=== PATIENT | female | born 1940 | race Two or more races ===

== ENCOUNTER 2018-05-13 20:41 | Inpatient (IN) | payer OTHER, MEDICAID ==
[~2018-05-13] VITALS: Ht 157.5 cm; Wt 34.9 kg
--- NOTE | 2018-05-13 21:00 | NUR ---
PT NOEL FROM [facility] FOR BEING PHYSICALLY AGGRESSIVE TOWARDS OTHERS, AND THIS IS OUT OF CHARACTER FOR THE PT. PT AAXO1. GUAMANIAN SPEAKING. PT LAUGHING WHEN SPOKEN TO. NO AGGRESSION NOTED UPON ARRIVAL. PT RESTING IN BED.
--- NOTE | 2018-05-13 21:07 | NUR ---
TELEVISION HOST AT BEDSIDE.
[2018-05-13 21:15] LABS: BASOPHILS % (AUTO) 0.7 % (0.0-2.0); EOSINOPHILS % (AUTO) 2.9 % (0.0-6.0); HEMATOCRIT 44 % (33-45); HEMOGLOBIN 15.2 g/dL (11.5-14.8); LYMPHOCYTES # (AUTO) 2.8 /CMM (0.8-4.8); MEAN CORPUSCULAR HGB CONC 34 g/dl (31.0-36.0); MEAN CORPUSCULAR VOLUME 95 fL (82-100); MONOCYTES # (AUTO) 0.5 /CMM (0.1-1.30); MONOCYTES % (AUTO) 7.5 % (2.0-12.0); NEUTROPHILS # (AUTO) 3.6 /CMM (1.8-8.9); NEUTROPHILS % (AUTO) 49.9 % (43.0-81.0); PLATELET COUNT (AUTO) 219 /CMM (150-450); RED BLOOD CELL COUNT(AUTO) 4.68 MIL/uL (4.0-5.2); WHITE BLOOD COUNT (AUTO) 7.2 K/uL (4.3-11.0)
[2018-05-13 21:25] LABS: CALCIUM, SERUM 9.2 mg/dL (8.5-10.1); CARBON DIOXIDE 29 mmol/L (21-32); CHLORIDE 103 mmol/L (98-107); CREATININE 0.8 mg/dL (0.6-1.3); GLUCOSE 107 mg/dL (74-106); POTASSIUM 3.8 mmol/L (3.5-5.1); SODIUM SERUM 136 mmol/L (136-145); UREA NITROGEN, BLOOD 17 mg/dL (7-18)
[2018-05-13 21:31] LABS: ALANINE AMINOTRANSFERASE 20 U/L (12-78); ALBUMIN 3.6 g/dL (3.4-5.0); ALCOHOL, BLOOD < 3 mg/dL (0-0); ALKALINE PHOSPHATASE 119 U/L (46-116); ASPARTATE AMINOTRANSFERASE 15 U/L (15-37); BILIRUBIN,DIRECT 0.1 mg/dL (0.0-0.2); BILIRUBIN,TOTAL 0.4 mg/dL (0.2-1.0); TOTAL PROTEIN, SERUM 7.1 g/dL (6.4-8.2)
--- NOTE | 2018-05-13 21:32 | NUR ---
PT TAKEN TO CT.
--- NOTE | 2018-05-13 21:50 | NUR ---
UNABLE TO OBTAIN URINE. ER AWARE.
[2018-05-13 22:01] LABS: THYROID STIMULATING HORMONE 3.375 uIU/mL (0.358-3.74)
--- NOTE | 2018-05-13 23:00 | NUR ---
URINE OBTAINED AND SENT TO LAB. Patient is resting comfortably in bed with eyes closed. Easily aroused. VSS. NAD NOTED. CALL LIGHT WITHIN REACH.
[2018-05-13 23:38] LABS: APPEARANCE,URINE SL CLOUDY (CLEAR); BILIRUBIN,URINE NEGATIVE (NEGATIVE); BLOOD, URINE NEGATIVE Ery/uL (NEGATIVE); COLOR,URINE YELLOW (YELLOW); KETONES,URINE NEGATIVE (NEGATIVE); LEUKOCYTE ESTERASE ,URINE 2+ (NEGATIVE); NITRITE, URINE POSITIVE (NEGATIVE); PROTEIN,URINE NEGATIVE (NEGATIVE); UGLUCOSE NEGATIVE (NEGATIVE); UROBILINOGEN,URINE 0.2 EU/dL (0.2)
--- NOTE | 2018-05-13 23:44 | NUR ---
Patient is resting comfortably in bed with eyes closed. Easily aroused. VSS. NAD NOTED. CALL LIGHT WITHIN REACH.
[2018-05-14 00:16] LABS: BACTERIA,URINE Many /HPF (None Seen); RBC,URINE 0-2 /HPF (0-2); SQUAMOUS EPITHELIAL CELL,UR Few /HPF (None Seen)
[2018-05-14] MEDS ORDERED: CRAN450C PO (00:44)
[2018-05-14] MEDS ORDERED: CHOL10002 PO (00:44)
[2018-05-14] MEDS ORDERED: DOCU-141 PO (00:44)
[2018-05-14] MEDS ORDERED: TRAZ-182 PO (00:44)
--- NOTE | 2018-05-14 00:56 | NUR ---
Report given to Lyndsay WILSON for SANDRA.
[2018-05-14 02:00] VITALS: BP 113/63
--- NOTE | 2018-05-14 02:00 | NUR ---
GPS RN NOTES: ADMITTED A 77YO FEMALE FROM [facility]. PATIENT BROUGHT INTO [facility] AND PLACED ON 5150 HOLD FOR GRAVE DISABILITY. PER HOLD, PATIENT IS STRIKING OTHER PATIENTS, INCREASED AGITATION, UNABLE TO BE REDIRECTED, PATIENT IS DISORIENTED IN ALL SPHERES, CONFUSED, DISORGANIZED, AGITATED AND AGGRESSIVE. PATIENT WILL BE UNDER THE CARE OF DR. TAYLOR AND ANNA, ARIC. PATIENT USHERED INTO THE ROOM, UPON FACE TO FACE EVALUATION, PATIENT PRESENTS ALERT AND ORIENTED X1, WITH A BLUNTED AFFECT, REFUSING TO ANSWER NURSE'S ASSESSMENT QUESTIONS.SHE SOMETIMES ANSWER THE QUESTIONS WITH JUST A LAUGH. REALITY ORIENTATION DONE. BELONGINGS AND CONTRABAND CHECKED. SKIN AND BODY ASSESSMENT DONE WITH KACEY SHARMA- REVEAL REDDISH SCABS ON BOTH FUENTES AND ON THE RIGHT THIGH, OTHERWISE SKIN IS INTACT.Q15 MIN CHECKS AND CARE PLAN INITIATED. ENVIRONMENTAL SAFETY CHECKED. BED ALARMS PUT ON PATIENT HAS HAD HISTORIES OF FALL FROM PREVIOUS FACILITY. PATIENT CHANGED INTO A CLEAN PATIENT'S GOWN. WILL MONITOR PATIENT FOR MOOD, SAFETY AND BEHAVIOR. WILL ENDORSE TO DAY SHIFT NURSE.
[2018-05-14] MEDS ORDERED: MAGNESIUM HYDROXIDE 30 ML UDC PO PRN (02:30)
[2018-05-14] MEDS ORDERED: LORAZEPAM 0.5 MG TABLET PO PRN (02:30)
[2018-05-14] MEDS ORDERED: ACETAMINOPHEN 325 MG TABLET PO PRN (02:30)
[2018-05-14] MEDS ORDERED: MAG HYDROX/AL HYDROX/SIMETH 30 ML UDC PO PRN (02:30)
[2018-05-14] MEDS ORDERED: ACET-868 PO (07:31)
[2018-05-14] MEDS ORDERED: MULT-659 PO (07:31)
[2018-05-14 08:00] VITALS: BP 125/84
--- NOTE | 2018-05-14 10:51 | NUR ---
GPS/RN PT NOTED TO AGGRESSIVE , SELECTIVELY MUTE REFUSED TO TAKE MEDICATION. OFFERED X3. COMMUNICATED VIA LATVIAN SPEAKING RECTIFICATION PRINTER. WILL OFFER AT LUNCH TIME
[2018-05-14] MEDS: LEVOFLOXACIN (500MG) 500 MG TABLET PO SCH (12:47)
[2018-05-14] MEDS: DIVALPROEX SODIUM 125 MG CAP.SPRINK PO SCH ×2 (12:47→21:29)
--- NOTE | 2018-05-14 13:00 | NUR ---
GPS/RN PT WAS MEDICATED ORDERED. LEVAQUIN SCHEDULED FOR 0900 GIVEN WELL. THE MORNING DOSE WAS WASTED IN OMNICELL PT SPIT IT OUT IN AM.
[2018-05-14 16:00] VITALS: BP 151/70
[2018-05-14 20:00] VITALS: BP 125/87
[2018-05-14] MEDS: MIRTAZAPINE SOLUTAB 15 MG/UDTABLET TAB.RAPDIS PO SCH (21:29)
[2018-05-15 07:54] LABS: BASOPHILS % (AUTO) 0.8 % (0.0-2.0); EOSINOPHILS % (AUTO) 2.2 % (0.0-6.0); HEMATOCRIT 44 % (33-45); HEMOGLOBIN 15.1 g/dL (11.5-14.8); LYMPHOCYTES # (AUTO) 1.9 /CMM (0.8-4.8); LYMPHOCYTES % (AUTO) 33.1 % (20.0-44.0); MEAN CORPUSCULAR HGB CONC 34 g/dl (31.0-36.0); MEAN CORPUSCULAR VOLUME 94 fL (82-100); MONOCYTES # (AUTO) 0.4 /CMM (0.1-1.30); MONOCYTES % (AUTO) 6.5 % (2.0-12.0); NEUTROPHILS # (AUTO) 3.3 /CMM (1.8-8.9); NEUTROPHILS % (AUTO) 57.4 % (43.0-81.0); PLATELET COUNT (AUTO) 219 /CMM (150-450); RED BLOOD CELL COUNT(AUTO) 4.67 MIL/uL (4.0-5.2); WHITE BLOOD COUNT (AUTO) 5.7 K/uL (4.3-11.0)
[2018-05-15 08:08] LABS: CHOLESTEROL 185 mg/dL (<200); HDL CHOLESTEROL 81 mg/dL (40-60); LDL 105 mg/dL (0-99); TRIGLYCERIDES 58 mg/dL (30-150)
[2018-05-15 08:17] VITALS: BP 119/66
[2018-05-15] MEDS: DIVALPROEX SODIUM 125 MG CAP.SPRINK PO SCH ×2 (08:54→20:36)
[2018-05-15] MEDS: LEVOFLOXACIN (500MG) 500 MG TABLET PO SCH (08:54)
[2018-05-15 08:59] LABS: ALANINE AMINOTRANSFERASE 18 U/L (12-78); ALBUMIN 3.4 g/dL (3.4-5.0); ALKALINE PHOSPHATASE 90 U/L (46-116); ASPARTATE AMINOTRANSFERASE 21 U/L (15-37); BILIRUBIN,TOTAL 0.7 mg/dL (0.2-1.0); CALCIUM, SERUM 8.6 mg/dL (8.5-10.1); CARBON DIOXIDE 26 mmol/L (21-32); CHLORIDE 104 mmol/L (98-107); CREATININE 0.8 mg/dL (0.6-1.3); GLUCOSE 110 mg/dL (74-106); POTASSIUM 3.9 mmol/L (3.5-5.1); SODIUM SERUM 139 mmol/L (136-145); TOTAL PROTEIN, SERUM 6.7 g/dL (6.4-8.2); UREA NITROGEN, BLOOD 10 mg/dL (7-18)
[2018-05-15] MEDS: QUETIAPINE FUMARATE 25 MG TABLET PO SCH ×2 (12:00→16:34)
--- NOTE | 2018-05-15 13:00 | NUR ---
RN NOTE: PATIENT WAS AGITATED DURING LUNCH. REFUSED TO TAKE MEDS.
[2018-05-15 16:25] VITALS: BP 134/55
[2018-05-15] MEDS: MIRTAZAPINE SOLUTAB 15 MG/UDTABLET TAB.RAPDIS PO SCH (20:36)
[2018-05-15 21:01] VITALS: BP 138/85
[2018-05-16 08:00] VITALS: BP 125/68
[2018-05-16] MEDS: QUETIAPINE FUMARATE 25 MG TABLET PO SCH ×2 (08:46→16:17)
[2018-05-16] MEDS: DIVALPROEX SODIUM 125 MG CAP.SPRINK PO SCH ×2 (08:46→21:06)
[2018-05-16] MEDS: LEVOFLOXACIN (500MG) 500 MG TABLET PO SCH (08:46)
--- NOTE | 2018-05-16 13:56 | NUR ---
UR Note: DIANA left daily clinicals for Humaira, Automatic Buffer, at [facility] (p. [phone]). Awaiting further authorization. DIANA will continue to follow-up.
[2018-05-16 16:00] VITALS: BP 125/71
--- NOTE | 2018-05-16 16:14 | NUR ---
Initial Discharge Instructions: Patient is a resident of [facility] [Address: [address] [place] [address]; ]. Spoke with pt's brother Gianfranco Nava ([phone]) who reports he would like the patient to return to the facility when ready for discharge. Spoke with Vianey at the facility who confirms that the patient will be able to discharge to their facility when stable. SW will continue to collaborate with pt, family, and MD regarding most appropriate discharge plans for this patient. SW will form a safe and proper discharge plan.
[2018-05-16 20:00] VITALS: BP 125/62
[2018-05-17 08:00] VITALS: BP 140/79
[2018-05-17] MEDS: QUETIAPINE FUMARATE 25 MG TABLET PO SCH ×2 (08:44→16:49)
[2018-05-17] MEDS: LEVOFLOXACIN (500MG) 500 MG TABLET PO SCH (08:44)
[2018-05-17] MEDS: DIVALPROEX SODIUM 125 MG CAP.SPRINK PO SCH ×3 (08:44→16:48)
--- NOTE | 2018-05-17 08:45 | NUR ---
UR Note: SW received call from Humaira Pressure Steamer Tender, at [facility] (p. [phone]). Patient authorized an additional 2 days (05/16/18-05/17/18) with review due on 05/18/18. SW will continue to follow-up.
[2018-05-17 16:00] VITALS: BP 100/59
[2018-05-17 20:00] VITALS: BP 125/71
[2018-05-17] MEDS: TEMAZEPAM 7.5 MG CAPSULE PO PRN (21:16)
[2018-05-18 08:00] VITALS: BP 131/65
[2018-05-18] MEDS: DIVALPROEX SODIUM 125 MG CAP.SPRINK PO SCH ×4 (09:00→20:15)
[2018-05-18] MEDS: LEVOFLOXACIN (500MG) 500 MG TABLET PO SCH ×2 (09:04→09:15)
[2018-05-18] MEDS: QUETIAPINE FUMARATE 25 MG TABLET PO SCH ×2 (09:12→16:24)
--- NOTE | 2018-05-18 09:53 | NUR ---
UR Note: DIANA called [employer] ([phone]), CELE UR case briefer, and left a clinical on her voicemail. DIANA stated the pt's progress, recent medication changes and asked for a few more days of inpatient authorization. DIANA is awaiting a call back.
--- NOTE | 2018-05-18 15:12 | NUR ---
UR Note: DIANA called [employer] ([phone]), CELE UR case preparer and liner, and left additional requested clinical information on her voicemail. DIANA asked for a call back regarding the authorization.
--- NOTE | 2018-05-18 15:15 | NUR ---
DIANA called the pt's brother, Gianfranco Nava ([phone]), and left a voicemail stating that the caller is the SW for the pt and that she would like to provide any updates and discuss the discharge plan.
[2018-05-18 16:00] VITALS: BP 122/68
[2018-05-18 20:39] VITALS: BP 133/73
[2018-05-18] MEDS: TEMAZEPAM 7.5 MG CAPSULE PO PRN (21:17)
[2018-05-19 07:29] LABS: BASOPHILS % (AUTO) 0.6 % (0.0-2.0); EOSINOPHILS % (AUTO) 4.2 % (0.0-6.0); HEMATOCRIT 46 % (33-45); HEMOGLOBIN 15.6 g/dL (11.5-14.8); LYMPHOCYTES # (AUTO) 2.1 /CMM (0.8-4.8); LYMPHOCYTES % (AUTO) 33.9 % (20.0-44.0); MEAN CORPUSCULAR HGB CONC 34 g/dl (31.0-36.0); MEAN CORPUSCULAR VOLUME 95 fL (82-100); MONOCYTES # (AUTO) 0.5 /CMM (0.1-1.30); MONOCYTES % (AUTO) 7.7 % (2.0-12.0); NEUTROPHILS # (AUTO) 3.3 /CMM (1.8-8.9); NEUTROPHILS % (AUTO) 53.6 % (43.0-81.0); PLATELET COUNT (AUTO) 218 /CMM (150-450); RED BLOOD CELL COUNT(AUTO) 4.83 MIL/uL (4.0-5.2); WHITE BLOOD COUNT (AUTO) 6.1 K/uL (4.3-11.0)
[2018-05-19 07:34] LABS: VALPROIC ACID 37 ug/mL (50-100)
[2018-05-19 07:44] LABS: ALANINE AMINOTRANSFERASE 20 U/L (12-78); ALBUMIN 3.3 g/dL (3.4-5.0); ALKALINE PHOSPHATASE 95 U/L (46-116); ASPARTATE AMINOTRANSFERASE 20 U/L (15-37); BILIRUBIN,TOTAL 0.6 mg/dL (0.2-1.0); CALCIUM, SERUM 8.7 mg/dL (8.5-10.1); CARBON DIOXIDE 28 mmol/L (21-32); CHLORIDE 109 mmol/L (98-107); CREATININE 0.8 mg/dL (0.6-1.3); GLUCOSE 117 mg/dL (74-106); POTASSIUM 3.9 mmol/L (3.5-5.1); SODIUM SERUM 145 mmol/L (136-145); TOTAL PROTEIN, SERUM 6.8 g/dL (6.4-8.2); UREA NITROGEN, BLOOD 21 mg/dL (7-18)
[2018-05-19 08:00] VITALS: BP 155/61
[2018-05-19] MEDS: QUETIAPINE FUMARATE 25 MG TABLET PO SCH ×2 (08:32→16:24)
[2018-05-19] MEDS: DIVALPROEX SODIUM 125 MG CAP.SPRINK PO SCH ×3 (08:32→16:25)
--- NOTE | 2018-05-19 09:46 | NUR ---
UR Note: [employer] ([phone]), ROSE MARIEN UR counter caser, left a voicemail for the SW stating that the pt will be authorized up to 05/19/18 and a review will be due on that day if additional days will be requested.
--- NOTE | 2018-05-19 09:49 | NUR ---
DIANA called the pt's brother, Gianfranco Nava ([phone]), and left a voicemail stating that the pt received additional authorization to remain at [facility].
--- NOTE | 2018-05-19 12:11 | NUR ---
DIANA called [facility] and spoke to Addie ([phone]) who stated that the pt can return to the facility tomorrow and she requested a clinical packet to be sent over.
--- NOTE | 2018-05-19 12:21 | NUR ---
DIANA faxed a clinical packet to Addie from [facility] to the fax number: [phone].
--- NOTE | 2018-05-19 13:33 | NUR ---
DIANA called the pt's brother, Gianfranco Nava ([phone]), and left a voicemail stating that the pt will be discharged tomorrow (05/20/18) back to [facility]. DIANA stated that if the family has any concerns or questions, to please call the SW.
[2018-05-19 16:00] VITALS: BP 151/82
[2018-05-19 20:00] VITALS: BP 106/76
[2018-05-19] MEDS: TEMAZEPAM 7.5 MG CAPSULE PO PRN (21:30)
[2018-05-20 08:00] VITALS: BP 117/60
[2018-05-20] MEDS: DIVALPROEX SODIUM 125 MG CAP.SPRINK PO SCH (08:57)
[2018-05-20] MEDS: QUETIAPINE FUMARATE 25 MG TABLET PO SCH (08:57)
[2018-05-20] MEDS: LEVOFLOXACIN (500MG) 500 MG TABLET PO SCH (09:00)
--- NOTE | 2018-05-20 10:26 | NUR ---
UR Note: DIANA called [employer] ([phone]), CELE UR pillowcase folder, and conducted the discharge clinical live on the phone.
--- NOTE | 2018-05-20 11:31 | NUR ---
GPS/RN-NOTES' PATIENT DISCHARGE TO [facility] TODAY. DR. MORRIS ( COVERING FOR DR. TAYLOR) AND JAYESH BARTH AWARE AND AGREES OF PATIENT DISCHARGE WITH ORDERS. PATIENT CALM AND COOPERATIVE DID NOT VERBALIZE SI/HI,DENIES VISUAL/AUDITORY HALLUCINATIONS AT THE TIME OF DISCHARGE.PATIENT LEFT THE UNIT IN STABLE CONDITION AWAKE,ALERT ORIENTED TO NAME ONLY AMBULATORY WITH ASSIST. ALL BELONGING WAS ENDORSE TO THE AMBULANCE STAFF. PER NOTES PATIENT'S BROTHER GE MARIE ([phone]) MADE AWARE OF THE DISCHARGE. PATIENT STRONGLY REFUSE FULL BODY ASSESSMENT PRIOR TO DISCHARGE DESPITE EXPLANTATIONS UNIT POLICIES. CHARGE NURSE AWARE.
--- NOTE | 2018-05-20 15:11 | NUR ---
Discharge Note: Pt was discharged to [facility] ([facility]) located at [address] [place] [address]; ([phone]). Pt was transported via [facility] (Trip #[id number]) at 11AM. Pts brother, Gianfranco Nava ([phone]), was informed of this discharge and approved of it. Upon discharge, the pt appeared to be in a euthymic mood and presented with a calm affect. Pt denied both suicidal and homicidal ideation as well as auditory and visual hallucinations. The pt will be under the care of psychiatrist, Dr. Huggins, located at [address] [place] [address]; and director of spa and guest experience, Dr. Workman, located at [address] [place] [address]; .
== END 2018-05-20 11:30 | DRG 885 ==
LOC: ER 20:42 → GPS 05-14 01:13
PROVIDERS: ADMIT Psychiatry & Neurology Psychosomatic Medicine; ATTEND Registered Nurse
DX: F39 Unspecified mood [affective] disorder (principal); F02.81 Dementia in other diseases classified elsewhere, unspecified severity, with behavioral disturbance; N39.0 Urinary tract infection, site not specified; G30.9 Alzheimer's disease, unspecified; B96.20 Unspecified Escherichia coli [E. coli] as the cause of diseases classified elsewhere; I70.0 Atherosclerosis of aorta; F41.9 Anxiety disorder, unspecified; E78.5 Hyperlipidemia, unspecified; M19.90 Unspecified osteoarthritis, unspecified site
CPT/HCPCS: 36415; 70450-TC; 71045-TC; 80048-TC; 80053-TC; 80061-TC; 80076-TC; 80164-TC; 80305; 81000-TC; 83605-TC; 84443-TC; 84484-TC; 85025-TC; 85730-TC; 87081-TC; 87086-TC; 87186-TC; 97116-TC; 97530-TC; G0480